=== PATIENT | female | born 1995 | race African-American/Black ===

== ENCOUNTER 2018-02-01 17:58 | Emergency (ER) | payer SELFPAY ==
[2018-02-01] MEDS ORDERED: Proparacaine 0.5% Opth 15 ML BOT ONE (18:27)
[2018-02-01] MEDS ORDERED: Fluorescein Opthalmic Strip ONE (18:27)
== END 2018-02-01 18:50 | disposition home or self-care (01) ==
LOC: ERS 17:58
DX: S05.02XA Injury of conjunctiva and corneal abrasion without foreign body, left eye, initial encounter (principal); H10.9 Unspecified conjunctivitis; X58.XXXA Exposure to other specified factors, initial encounter
CPT/HCPCS: 99283

== ENCOUNTER 2018-02-03 17:37 | Emergency (ER) | payer SELFPAY ==
[2018-02-03] MEDS ORDERED: Fluorescein Opthalmic Strip ONE (17:45)
[2018-02-03] MEDS ORDERED: Proparacaine 0.5% Opth 15 ML BOT ONE (17:45)
== END 2018-02-03 18:07 | disposition home or self-care (01) ==
LOC: ERS 17:37
DX: H11.422 Conjunctival edema, left eye (principal)
CPT/HCPCS: 99282

== ENCOUNTER 2018-06-07 20:19 | Emergency (ER) | payer SELFPAY ==
[2018-06-07 22:00] LABS: #Basophils 0.1 thou/uL (0.0-0.2); #Eosinphils 0.1 thou/uL (0.0-0.7); #Lymphocytes 2.1 thou/uL (1.20-3.40); #Monocytes 0.6 thou/uL (0.11-0.59); #Neutrophils 4.4 thou/uL (1.40-6.50); %Basophils 1.8 % (0.0-1.0); %Lymphocytes 28.8 % (21.0-51.0); %Monocytes 8.5 % (0.0-10.0); Hemoglobin 14.5 g/dL (12.0-16.0); Mean Corpuscular HGB CONC 31.4 g/dL (32.0-36.0); Mean Corpuscular Hemoglobin 28.9 pg (27.0-31.0); Mean Platelet Volume 6.6 fL (7.4-10.4); Platelet Count 371 thou/uL (130-400); RBC Distribution Width 11.6 % (11.5-14.5); Red Blood Cell (RBC) Count 5.03 mill/uL (4.20-5.40); White Blood Cell (WBC) Count 7.5 thou/uL (4.8-10.8)
[2018-06-07 22:07] LABS: BHCG - Serum POSITIVE (NEGATIVE); Pregs Control Background? CLEAR/WHITE (CLR/WHITE); Pregs Control Bar Appear? YES (CONTROL BAR)
[2018-06-07] MEDS ORDERED: Ondansetron ODT 4 MG TAB ONE (22:16)
[2018-06-07 22:20] LABS: ALT (SGPT) 9 U/L (8-55); AST (SGOT) 18 U/L (5-34); Albumin 4.7 g/dL (3.5-5.0); Alkaline Phosphatase 58 U/L (40-150); Anion Gap 19 mmol/L (10-20); BUN (Urea Nitrogen) 7 mg/dL (7.0-18.7); Bilirubin, Total 0.8 mg/dL (0.2-1.2); Calc. Creatinine Clearance 0 mL/min (70-130); Calcium 10.1 mg/dL (7.8-10.44); Carbon Dioxide 18 mmol/L (22-29); Chloride 106 mmol/L (98-107); Estimated GFR-MDRD Greater than 90; Globulin 4.2 g/dL (2.4-3.5); Glucose 72 mg/dL (70-105); Potassium 3.5 mmol/L (3.5-5.1); Protein, Total 8.9 g/dL (6.0-8.3); Sodium 139 mmol/L (136-145)
[2018-06-07 23:22] LABS: Bilirubin Small (Negative); Blood, Urine Negative (Negative); Clarity CLOUDY (Clear); Glucose, Urine (Dipstick) Negative (Negative); Leukocyte Small (Negative); Nitrite Negative (Negative); Protein, Urine (Dipstick) 30 mg/dL (Neg-Trace); Specific Gravity, Urine 1.034 (1.002-1.036); Urobilinogen 0.2 mg/dL (0.2-1.0)
[2018-06-07 23:25] LABS: Bacteria/HPF Rare-Few HPF (None Seen); RBC/HPF 0-3 HPF (0-3); Squamous Epithelial 21-50 HPF (0-3); WBC/HPF 21-50 HPF (0-3)
[2018-06-07 23:32] LABS: Hyaline Casts/LPF NONE SEEN LPF (0-3 Hyaline); Other Casts/LPF None Seen LPF (0-3 Hyaline); Renal Epithelial None Seen HPF (0-3); Transitional Epithelial NONE SEEN HPF (0-3)
== END 2018-06-07 22:55 | disposition home or self-care (01) ==
LOC: ERS 20:19
DX: O21.9 Vomiting of pregnancy, unspecified (principal); Z3A.00 Weeks of gestation of pregnancy not specified
CPT/HCPCS: 36415; 80053; 81003; 81015; 84703; 85025; 99284; Q0162

== ENCOUNTER 2018-08-17 14:36 | Emergency (ER) | payer SELFPAY | END 2018-08-17 15:44 | disposition home or self-care (01) | LOC: ERS 14:36 | DX: R19.7 Diarrhea, unspecified (principal) | CPT/HCPCS: 99281 ==

== ENCOUNTER 2018-09-20 06:30 | Outpatient (CLI) | payer MEDICAID ==
--- NOTE | 2018-09-20 08:30 | ULT ---
PELVIC SONOGRAM TRANSABDOMINAL IMAGING WITH DUPLEX EVALUATION: HISTORY: Pelvic pain and bleeding. FINDINGS: Urinary bladder is incompletely distended. Uterus has a heterogeneous echotexture and is 7.3 cm. En dometrium is 0.8 cm. No free fluid. The right ovary is 3.2 cm length and the left is 2.8 cm. Each has a normal appearance with follicles and good color and spectral Doppler flow. IMPRESSION: Normal pelvic sonogram. POS: CET
== END 2018-09-20 06:31 | disposition home or self-care (01) ==
LOC: BICULT 06:30
PROVIDERS: ATTEND Advanced Practice Midwife
DX: N92.6 Irregular menstruation, unspecified (principal)
CPT/HCPCS: 76856; 93976

== ENCOUNTER 2018-10-03 08:27 | Emergency (ER) | payer MEDICAID, SELFPAY ==
[2018-10-03] MEDS ORDERED: Ketorolac Tromethamine 30 MG/ML VIAL ONE (09:43)
[2018-10-03] MEDS ORDERED: Pantoprazole 40 MG VIAL ONE (09:43)
--- NOTE | 2018-10-03 09:56 | ULT ---
EXAM: US Gallbladder RUQ CLINICAL HISTORY: Right upper quadrant pain.. COMPARISON: None. FINDINGS: Pancreas: The head and body of the pancreas have a normal echotexture. The remainder of the pancreas is obscured. Liver:Normal echotexture. No hepatic masses or intrahepatic biliary dilatation. The contour of the he patic margins maintained. Right hepatic lobe is 14.4 cm. Portal vein: Main portal vein is patent. Appropriate flow. Gallbladder: No sonographic evidence of cholelithiasis, gallbladder wall thickening or pericholecysti c fluid. Ohara's sign:Negative Bile ducts: Common bile duct diameter 0.3 cm Right kidney: No hydronephrosis Right kidney measuring 5.8 x 4.0 x 9.8 cm in length. IMPRESSION: Unremarkable exam.
[2018-10-03 10:00] LABS: #Basophils 0.1 thou/uL (0.0-0.2); #Eosinphils 0.6 thou/uL (0.0-0.7); #Lymphocytes 2.6 thou/uL (1.20-3.40); #Monocytes 0.8 thou/uL (0.11-0.59); #Neutrophils 5.7 thou/uL (1.40-6.50); %Basophils 0.8 % (0.0-1.0); %Eosinophils 6.3 % (0.0-10.0); %Lymphocytes 26.7 % (21.0-51.0); %Monocytes 7.8 % (0.0-10.0); %Neutrophils 58.5 % (42.0-75.0); Hemoglobin 11.9 g/dL (12.0-16.0); Mean Corpuscular HGB CONC 31.8 g/dL (32.0-36.0); Mean Corpuscular Hemoglobin 28.7 pg (27.0-31.0); Mean Corpuscular Volume 90.4 fL (78.0-98.0); Mean Platelet Volume 6.8 fL (7.4-10.4); Platelet Count 464 thou/uL (130-400); Red Blood Cell (RBC) Count 4.13 mill/uL (4.20-5.40); White Blood Cell (WBC) Count 9.8 thou/uL (4.8-10.8)
[2018-10-03 10:06] LABS: BHCG - Serum Negative (NEGATIVE); Pregs Control Background? CLEAR/WHITE (CLR/WHITE); Pregs Control Bar Appear? YES (CONTROL BAR)
[2018-10-03 10:29] LABS: ALT (SGPT) 10 U/L (8-55); AST (SGOT) 22 U/L (5-34); Albumin 3.9 g/dL (3.5-5.0); Alkaline Phosphatase 62 U/L (40-150); Anion Gap 12 mmol/L (10-20); BUN (Urea Nitrogen) 7 mg/dL (7.0-18.7); Bilirubin, Total 0.2 mg/dL (0.2-1.2); Calc. Creatinine Clearance 0 mL/min (70-130); Calcium 9.2 mg/dL (7.8-10.44); Carbon Dioxide 24 mmol/L (22-29); Chloride 105 mmol/L (98-107); Estimated GFR-MDRD Greater than 90; Globulin 4.2 g/dL (2.4-3.5); Glucose 90 mg/dL (70-105); Lipase 23 U/L (8-78); Potassium 4.4 mmol/L (3.5-5.1); Protein, Total 8.1 g/dL (6.0-8.3); Sodium 137 mmol/L (136-145)
[2018-10-03 11:08] LABS: Bilirubin Negative (Negative); Blood, Urine Negative (Negative); Clarity Clear (Clear); Glucose, Urine (Dipstick) Negative (Negative); Leukocyte Trace (Negative); Nitrite Negative (Negative); Protein, Urine (Dipstick) Negative (Neg-Trace); Urobilinogen 0.2 mg/dL (0.2-1.0); pH, Urine 6.5 (5.0-9.0)
[2018-10-03 11:16] LABS: Bacteria/HPF None Seen HPF (None Seen); RBC/HPF 0-3 HPF (0-3); Squamous Epithelial 0-3 HPF (0-3); Transitional Epithelial 0-3 HPF (0-3)
[2018-10-03 11:17] LABS: Hyaline Casts/LPF NONE SEEN LPF (0-3 Hyaline)
== END 2018-10-03 11:37 | disposition home or self-care (01) ==
LOC: ERS 08:27
DX: N39.0 Urinary tract infection, site not specified (principal)
CPT/HCPCS: 76705; 80053; 81003; 81015; 83690; 84703; 85025; 87086; 96361; 96374; 96375; C9113; J1885

== ENCOUNTER 2018-10-07 02:49 | Emergency (ER) | payer MEDICAID, SELFPAY ==
--- NOTE | 2018-10-07 09:42 | RAD ---
PORTABLE CHEST: 10/07/2018 PROVIDED CLINICAL HISTORY: Chest pain. FINDINGS: The cardiac and mediastinal silhouette is within normal limits. The lungs appear clear. No pleural fluid or pneumothorax apparent. IMPRESSION: No evidence for an acute cardiopulmonary process. POS: OFF
== END 2018-10-07 05:17 | disposition home or self-care (01) ==
LOC: ERS 02:49
DX: R09.1 Pleurisy (principal)
CPT/HCPCS: 71045

== ENCOUNTER 2018-11-12 20:35 | Emergency (ER) | payer SELFPAY ==
[2018-11-12] MEDS ORDERED: Ondansetron ODT 4 MG TAB ONE (21:45)
== END 2018-11-12 22:47 | disposition home or self-care (01) ==
LOC: ERS 20:35
DX: R11.2 Nausea with vomiting, unspecified (principal)
CPT/HCPCS: 99283; Q0162